=== PATIENT | female | born 1950 | race Two or more races ===

== ENCOUNTER 2018-09-06 07:05 | Day surgery (SDC) | payer OTHER ==
[~2018-09-06 07:05] MED LIST: COZAAR100 MG PO; GLUCOTROL10 MG PO; INDERAL LA80 MG PO; METFORMIN HCL1000 M2 PO; NEURONTIN800 MG PO; NORVASC5 MG PO; PEPCID40 MG PO; PLAQUENIL PO; PROTONIX40 MG PO; SYNTHROID50 MCG PO; VITAMIN D31000 UNIT PO
[2018-09-06] MEDS ORDERED: PERCOCET 5-3251 EACH PO (10:33)
== END 2018-09-06 14:10 | disposition home or self-care (01) ==
LOC: CIR.AMB 07:05
DX: D35.1 Benign neoplasm of parathyroid gland (principal)